=== PATIENT | female | born 1955 | race Two or more races ===

== ENCOUNTER 2023-03-13 06:53 | Day surgery (SDC) | payer OTHER ==
[~2023-03-13] VITALS: Ht 154.9 cm; Wt 66.7 kg
[~2023-03-13 06:53] MED LIST: ZETIA10 MG PO
== END 2023-03-13 18:20 | disposition home or self-care (01) ==
LOC: CIR.AMB 06:53
PROVIDERS: ATTEND Surgery
DX: C50.411 Malignant neoplasm of upper-outer quadrant of right female breast (principal); R59.0 Localized enlarged lymph nodes; Z88.0 Allergy status to penicillin; Z88.6 Allergy status to analgesic agent; Z20.822 Contact with and (suspected) exposure to COVID-19
CPT/HCPCS: 19301; 38525; 38792; 19281; A9541; L8699